=== PATIENT | male | born 1985 | race Caucasian/White ===

== ENCOUNTER 2016-12-23 19:23 | Emergency (ER) | payer SELFPAY ==
[2016-12-23] MEDS ORDERED: NORMAL SALINE 10 ML SYRINGE FLUSH IVP PRN (19:25)
[2016-12-23] MEDS ORDERED: Sodium Chloride 0.9% 1,000 ML PRIMARY IV ONE (19:25)
[2016-12-23] MEDS ORDERED: fentaNYL Inj 100 MCG/2 ML VIAL IVP ONE ×2 (19:26→20:03)
[2016-12-23] MEDS ORDERED: ONDANSETRON 4 MG/2 ML VIAL IVP ONE (19:27)
[2016-12-23 19:34] LABS: BASOPHILS # (AUTO) 0.06 10*3/UL; BASOPHILS % (AUTO) 0.5 % (0-1); EOSINOPHILS % (AUTO) 1.8 % (0-8); HEMATOCRIT 48.7 % (42.0-52.0); HEMOGLOBIN 17.4 g/dL (14.0-18.0); IMM GRAN % (AUTO) 0.4 % (0-5); IMM GRAN# (AUTO) 0.05 10*3/UL; LYMPHOCYTES # (AUTO) 3.88 10*3/uL; MEAN CORPUSCULAR HEMOGLOBIN 31.2 PG (27-31); MEAN CORPUSCULAR HGB CONC 35.7 g/dL (33-37); MEAN PLATELET VOLUME 9.9 FL (7.4-12.2); MONOCYTES # (AUTO) 0.71 10*3/UL (0.3-0.8); MONOCYTES % (AUTO) 5.7 % (5-15); NEUTROPHILS % (AUTO) 60.6 % (50-80); RDW COEFFICIENT OF VARIATION 12.6 % (11.5-14.5); RED BLOOD COUNT 5.58 10^6/uL (4.70-6.10); WHITE BLOOD COUNT 12.53 10^3/uL (4.8-10.8)
[2016-12-23 19:36] LABS: PLATELET MORPHOLOGY COMMENT NORMAL MORPHOLOGY (NORM)
[2016-12-23 19:40] LABS: ASPARTATE AMINO TRANSFERASE 33 IU/L (21-57); BILIRUBIN,TOTAL 0.4 mg/dL (0.3-1.2); BLOOD UREA NITROGEN 16 mg/dL (7-22); CALCIUM 8.9 mg/dL (8.7-10.7); CHLORIDE 106 meq/L (98-112); EST GLOMERULAR FILTRATION > 60 (>60 ml/min/1.73m(2)); GLUCOSE 107 mg/dL (78-110); POTASSIUM 4.4 meq/L (3.8-5.2); SERUM ALCOHOL 10 mg/dL (0-10); SODIUM 139 meq/L (135-145); TOTAL PROTEIN 6.5 g/dL (6.1-8.0)
[2016-12-23] MEDS ORDERED: HYDROmorphone 2 MG/1 ML IVP ONE (21:05)
--- NOTE | 2016-12-23 21:33 | PDOC ---
Fall HPI - General Chief Complaint: Fall Stated Complaint: LOWER BACK PAIN AFTER FALL Date Seen by Provider: 12/23/16 Time Seen by Provider: 19:20 Source: POSITIVE: Patient Exam Limitations: POSITIVE: No limitations Nurse's Notes Reviewed & Considered: Yes - History of Present Illness Initial Comments: The patient is a 31-year-old male who is brought to the emergency department with complaints primarily of lower back pain after a fall. He states that he is staying at one of the hotels here in town. He states that he was getting out of the hot tub when he slipped on some stairs and fell. He states that he slid down a series of concrete stairs hitting his lower back. He is complaining primarily of lower back pain. He was able to ambulate and he states that with walking he feels like something is popping in his back. He denies any radiation of pain into his legs and denies any numbness or weakness in his legs. He does have some pain shooting up his back to the base of his head. He denies any chest wall or abdominal pain. He did not hit his head and denies loss of consciousness. He denies any prior history of back problems or back surgery. Have you received a tetanus shot in the past 10 years?: Unknown - Patient Home Medications Home Medications: Home Medications Cyclobenzaprine HCl [Flexeril] 10 mg PO TID PRN #20 tab 12/23/16 Hydrocodone/Acetaminophen [[place] 7.5-325 Tablet] 1 - 2 each PO Q6H PRN #15 tablet 12/23/16 - Patient Allergies Allergies/Adverse Reactions: Allergies Allergy/AdvReac Type Severity Reaction Status Date / Time ketorolac tromethamine Allergy RASH Verified 12/23/16 19:31 [From Toradol] Past Medical History Past Medical History Reviewed: Other (please comment) (Patient has had previous shoulder surgery 2 on his right shoulder, he states he is healthy otherwise.) ROS - Limitations ROS Limitations: No Limitations (Review of systems otherwise noncontributory) Fall Physical Exam - General Appearance General Appearance: POSITIVE: Alert, Cooperative, No Acute Distress - HEENT HEENT: POSITIVE: Head Inspection Nml, Eyes Inspection Nml, Ears Inspection Nml, Pharynx Inspect. Nml, PERRL, EOMI - Neck Neck: POSITIVE: Trachea Midline, Other (He did have some tenderness in his mid C -spine and he was placed in a c-collar shortly after arrival.) - Respiratory / CVS Respiratory / CVS: POSITIVE: Chest Non Tender, Breath Sounds Normal, No Respiratory Distress, Heart Sounds Normal, Regular Rate/Rhythm Peripheral Pulses: Dorsalis-pedis (R): 2+, Dorsalis-pedis (L): 2+ - Abdomen Abdomen: Soft: (All Quadrants), Denies Tenderness: (All Quadrants), No Guarding : (All Quadrants), No Rebound: (All Quadrants), No Distention: (All Quadrants) Additional Abdominal Details: His pelvis is nontender and stable - Neuro / Psych Neuro / Psych: POSITIVE: Oriented X3, Motor Normal, Sensation Normal - Skin Skin: POSITIVE: Intact, Other (He is diaphoretic primarily on his forehead) - Back Back: POSITIVE: Other (He does have tenderness in the lumbar region with no obvious swelling, bruising or deformity) - Extremities Extremity Assessment: Normal ROM: (ALL), Normal Inspection: (ALL) Fall Progress - Results Reviewed by me Xrays/CTs/US Reviewed by me: Yes Discussed with Radiologist: Yes Radiology Findings: CT scan of the cervical/thoracic/lumbar spine are all negative for acute fracture per radiologist. He does have some degenerative changes at the L5-S1 level Lab Results Reviewed: Yes Lab Results:: Laboratory Results 12/23/16 12/23/16 Range/Units 19:31 22:07 WBC 12.53 H (4.8-10.8) 10^3/uL RBC 5.58 (4.70-6.10) 10^6/uL Hgb 17.4 (14.0-18.0) g/dL Hct 48.7 (42.0-52.0) % MCV 87.3 (80-90) FL MCH 31.2 H (27-31) PG MCHC 35.7 (33-37) g/dL RDW Std Deviation 40.1 (39-50) fL RDW Coeff of [place] 12.6 (11.5-14.5) % Plt Count 316 (140-350) 10*3/uL MPV 9.9 (7.4-12.2) FL Immature Gran % (Auto) 0.4 (0-5) % Neut % (Auto) 60.6 (50-80) % Lymph % (Auto) 31.0 (10-50) % [place] % (Auto) 5.7 (5-15) % Eos % (Auto) 1.8 (0-8) % Baso % (Auto) 0.5 (0-1) % Immature Gran # (Auto) 0.05 10*3/UL Neut # (Auto) 7.60 10*3/UL Lymph # (Auto) 3.88 10*3/uL [place] # (Auto) 0.71 (0.3-0.8) 10*3/UL Eos # (Auto) 0.23 10*3/UL Baso # (Auto) 0.06 10*3/UL WBC Morphology Comment Normal morphology (NORM) Plt Morphology Comment Normal morphology (NORM) RBC Morph Comment Normal morphology (NORM) Sodium 139 (135-145) meq/L Potassium 4.4 (3.8-5.2) meq/L Chloride 106 (98-112) meq/L Carbon Dioxide 23 (23-33) meq/L Anion Gap 10 (5-20) BUN 16 (7-22) mg/dL Creatinine 1.0 (0.70-1.50) mg/dL Estimated GFR > 60 (>60 ml/min/1.73m(2)) BUN/Creatinine Ratio 16.00 (6-20) Glucose 107 (78-110) mg/dL Calculated Osmolality 288.0 (267-292) mOsm/kg Calcium 8.9 (8.7-10.7) mg/dL Total Bilirubin 0.4 (0.3-1.2) mg/dL AST 33 (21-57) IU/L ALT 38 (21-72) IU/L Alkaline Phosphatase 54 (38-126) IU/L Total Protein 6.5 (6.1-8.0) g/dL Albumin 4.0 (3.5-4.8) g/dL Globulin 2.5 (2.50-4.10) g/dL Albumin/Globulin Ratio 1.60 (1.3-2.0) mg/g Ur Collection Type Clean catch urine Urine Color Yellow Urine Clarity Clear (CLEAR) Urine pH 7.0 (5.0-8.5) Ur Specific [place] 1.020 (1.005-1.030) U Specif Grav (Refrac) 1.020 Urine Protein Negative (NEG) mg/dl Urine Glucose (UA) Negative (NEG) mg/dL Urine Ketones Negative (NEG) Urine Occult Blood Negative (NEG) Urine Nitrate Negative (NEG) Urine Bilirubin Negative (NEG) Urine Urobilinogen 0.2 (0.2) EU/dL Ur Leukocyte Esterase Negative (NEG) Ur Culture Indicated? Culture not set Urine Opiates Screen Positive H (NEG) Ur Buprenorphine Negative (NEG) Ur Oxycodone Screen Negative (NEG) Urine Methadone Screen Negative (NEG) Ur Propoxyphene Screen Negative (NEG) Barbiturate Screen Negative (NEG) U Tricyclic Antidepress Negative (NEG) Phencyclidine Screen Negative (NEG) Amphetamines Screen Negative (NEG) U Methamphetamines Scrn Negative (NEG) Benzodiazepines Screen Negative (NEG) Cocaine Screen Negative (NEG) U Marijuana (THC) Screen Negative (NEG) Serum Alcohol 10 (0-10) mg/dL - Patient's Progress MDM / ED Course: The patient is complaining of severe lower back pain on arrival. An IV was established and the patient did receive fentanyl and Zofran IV for pain. He continued to have pain and received a second dose of fentanyl with only minimal relief. After CT he received a dose of Dilaudid [address] results were delayed somewhat and once available revealed no evidence of acute fracture in his cervical, thoracic or lumbar spine per radiologist. These findings were discussed with the patient. His blood work is all unremarkable other than a mildly elevated white count and his urinalysis is normal as well. At this point his pain appears to be soft tissue in nature. He was given Ativan 1 mg IV for spasm. He will be discharged home with instructions to take ibuprofen 600 mg every 6 hours as needed for pain. In addition he was given a prescription for Flexeril 10 mg every 8 hours as needed for spasm and [place] 7.5/ 325 as needed for pain. He is advised return to the emergency room if increased pain, numbness or weakness in his legs, bowel or bladder dysfunction, any worsening or change in symptoms. He will follow-up with his primary care in [place] in 3-5 days. - Consult Counseled: POSITIVE: Patient, RE: Lab Results, RE: Radiology Results, RE: DX, RE : Need for F/U Patient Care Time - Estimated PCT Patient Care Time (In Minutes): 35 Vital Signs - Recent Vital Signs Vital Signs: Vital Signs (Last 8 hours) Temp Pulse Resp BP Pulse Ox 12/23/16 19:23 97.0 F 91 20 163/79 94 - VS Reviewed Vital Signs Reviewed: Yes Discharge Clinical Impression: Back pain Condition: Stable Prescriptions / Orders: Cyclobenzaprine HCl [Flexeril] 10 mg PO TID PRN #20 tab PRN Reason: Spasms Hydrocodone/Acetaminophen [[place] 7.5-325 Tablet] 1 - 2 each PO Q6H PRN #15 tablet PRN Reason: Pain Patient Instructions Given at Discharge: Acute Low Back Pain (ED) Additional Instructions: The CAT scan of your neck, thoracic and lumbar spine did not reveal any evidence of fracture. At this point it appears that the pain you are experiencing in your neck and lower back is mostly soft tissue in nature. Recommend regular anti-inflammatory/ibuprofen 600 mg every 6 hours. In addition your been prescribed Flexeril 10 mg every 8 hours as needed for spasm/ pain. You have also been prescribed [place] 7.5/325 which he can take one or 2 every 6 hours as needed for pain. Recommend she return to the emergency room if he develops increased pain, numbness or weakness in your legs, bowel or bladder symptoms, any worsening or change in symptoms. Recommend follow-up with primary care in 3-5 days. Follow Up With: NONE,NONE [Primary Care Provider] -
[2016-12-23 21:49] VITALS: RESP 20; TEMP 97
[2016-12-23 22:10] LABS: BILIRUBIN,URINE NEGATIVE (NEG); CLARITY,URINE CLEAR (CLEAR); GLUCOSE, URINE (UA) NEGATIVE (NEG); LEUKOCYTE ESTERASE ,URINE NEGATIVE (NEG); NITRATE,URINE NEGATIVE (NEG); OCCULT BLOOD,URINE NEGATIVE (NEG); PROTEIN,URINE NEGATIVE (NEG); UROBILINOGEN,URINE 0.2 EU/dL (0.2)
[2016-12-23 22:24] LABS: URINE SAMPLE TYPE CLEAN CATCH URINE
[2016-12-23 22:25] LABS: CANNABINOID SCREEN,URINE NEGATIVE (NEG); COCAINE SCREEN NEGATIVE (NEG); METHAMPHETAMINES SCREEN,URINE NEGATIVE (NEG)
[2016-12-23] MEDS ORDERED: LORazepam 2 MG/1 ML VIAL IVP ONE (23:20)
[2016-12-23] MEDS ORDERED: CYCLOBENZAPRINE 10 MG TABLET PO SCH (23:30)
[2016-12-23] MEDS ORDERED: HYDROcodone-APAP 7.5 MG-325 MG TABLET PO SCH (23:30)
[2016-12-23] MEDS ORDERED: HYDROcodone-APAP 7.5 MG-325 MG TABLET PO ONE (23:42)
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
== END 2016-12-23 23:44 | disposition home or self-care (01) ==
LOC: ER 19:23
DX: M54.5 Low back pain (principal); R51 Headache; M54.2 Cervicalgia; W10.8XXA Fall (on) (from) other stairs and steps, initial encounter; Y92.59 Other trade areas as the place of occurrence of the external cause
CPT/HCPCS: 72125; 72128; 72131; 80053; 80305; 80320; 81003; 85025; 96374; 96375; 99283 ×2; J3010; J1170; J2060; J2405; J7030

== ENCOUNTER 2017-04-18 18:02 | Emergency (ER) | payer SELFPAY ==
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
[2017-04-18] MEDS ORDERED: MEPERIDINE HCL/PF 100 MG/1 ML INJECTION IM ONE (20:08)
[2017-04-18 22:07] VITALS: RESP 20; TEMP 98.9
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
== END 2017-04-18 20:27 | disposition home or self-care (01) ==
LOC: ER 18:02
DX: S43.401A Unspecified sprain of right shoulder joint, initial encounter (principal); V86.59XA Driver of other special all-terrain or other off-road motor vehicle injured in nontraffic accident, initial encounter
CPT/HCPCS: 73030; 96372; 99283; J2175